=== PATIENT | male | born 1990 | race Caucasian/White ===

== ENCOUNTER 2016-06-01 12:44 | Day surgery (SDC) | payer BC ==
[2016-06-01] MEDS ORDERED: CLINDAMYCIN 600 MG/50 ML 50 ML IV ONE ×2 (13:08→13:12)
[2016-06-01] MEDS ORDERED: fentaNYL 100 MCG/2 ML VIAL IVP ONE (13:10)
[2016-06-01] MEDS ORDERED: MIDAZOLAM 2 MG/2 ML VIAL IVP ONE (13:10)
[2016-06-01] MEDS ORDERED: LIDOCAINE-MPF 2% 5 ML VIAL IM ONE (13:10)
[2016-06-01] MEDS ORDERED: LACTATED RINGERS 1,000 ML IV ONE (14:00)
[2016-06-01] MEDS ORDERED: LIDOCAINE 1% 50 ML MDV SUBQ ONE (14:14)
== END 2016-06-01 23:59 ==
PROC: 0LQ80ZZ Repair Left Hand Tendon, Open Approach (ICD-10-PCS; principal; 2016-06-01 13:45)
DX: S66.321A Laceration of extensor muscle, fascia and tendon of left index finger at wrist and hand level, initial encounter (principal); W26.0XXA Contact with knife, initial encounter; Y93.89 Activity, other specified; Y92.009 Unspecified place in unspecified non-institutional (private) residence as the place of occurrence of the external cause
CPT/HCPCS: 26410; 96374; 99283; J7120